=== PATIENT | male | born 1985 | race Caucasian/White ===

== ENCOUNTER 2020-04-12 13:21 | Emergency (ER) | payer OTHER ==
[~2020-04-12] VITALS: Ht 165.1 cm; Wt 102.3 kg
[2020-04-12 13:28] VITALS: BP 126/80
--- NOTE | 2020-04-12 13:28 | NUR ---
Pt taken to chair A.
--- NOTE | 2020-04-12 13:39 | NUR ---
35/M presents to ED with complaints of left ankle pain s/p a mechanical trip and fall yesterday. Patient states he stepped into a hole and twisted his ankle. Pt ambulating with steady gait. Pt has limited ROM d/t pain. CMS intact.
[2020-04-12] MEDS ORDERED: IBUPROFEN 600 MG TAB PO ONE (13:40)
[2020-04-12 14:41] VITALS: BP 126/80
== END 2020-04-12 14:40 | disposition home or self-care (01) ==
LOC: MED 13:21
DX: S93.402A Sprain of unspecified ligament of left ankle, initial encounter (principal); W22.8XXA Striking against or struck by other objects, initial encounter; Y93.89 Activity, other specified; Y92.89 Other specified places as the place of occurrence of the external cause; Y99.8 Other external cause status
CPT/HCPCS: 73610; 99283

== ENCOUNTER 2020-09-27 15:03 | Emergency (ER) | payer OTHER ==
[~2020-09-27] VITALS: Ht 165.1 cm; Wt 99.8 kg
[2020-09-27 15:34] VITALS: BP 136/86
--- NOTE | 2020-09-27 15:36 | NUR ---
Patient ambulated to lobby.
--- NOTE | 2020-09-27 15:40 | NUR ---
NO NEED NURSING CARE.
[2020-09-27 15:48] VITALS: BP 136/86
--- NOTE | 2020-09-27 15:48 | NUR ---
Patient discharged with v/s stable. Written and verbal after care instructions given and explained. Patient alert, oriented and verbalized understanding of instructions. Ambulatory with steady gait. All questions addressed prior to discharge. ID band removed. Patient advised to follow up with PMD. Rx of AMOXICILLIN, IBUPROFEN & NORCO given. Patient educated on indication of medication including possible reaction and side effects. Opportunity to ask questions provided and answered.
== END 2020-09-27 15:48 | disposition home or self-care (01) ==
LOC: MED 15:03
DX: K03.89 Other specified diseases of hard tissues of teeth (principal); K08.89 Other specified disorders of teeth and supporting structures; J45.909 Unspecified asthma, uncomplicated
CPT/HCPCS: 99283

== ENCOUNTER 2020-11-23 23:40 | Emergency (ER) | payer OTHER ==
[~2020-11-23] VITALS: Ht 165.1 cm; Wt 95.3 kg
[2020-11-23 23:50] VITALS: BP 132/79
[2020-11-23] MEDS ORDERED: KETOROLAC 60 MG/2 ML VIAL IM ONE (23:55)
[2020-11-24] MEDS ORDERED: IBUP-2213 PO (00:40)
[2020-11-24] MEDS ORDERED: ACET-8386 PO (00:40)
[2020-11-24 00:58] VITALS: BP 132/79
== END 2020-11-24 00:58 | disposition home or self-care (01) ==
LOC: MED 23:40
DX: S60.032A Contusion of left middle finger without damage to nail, initial encounter (principal); J45.909 Unspecified asthma, uncomplicated; W22.8XXA Striking against or struck by other objects, initial encounter; Y93.89 Activity, other specified; Y92.89 Other specified places as the place of occurrence of the external cause; Y99.8 Other external cause status
CPT/HCPCS: 73140; 96372; 99283; J1885

== ENCOUNTER 2021-02-08 13:51 | Emergency (ER) | payer OTHER ==
[~2021-02-08] VITALS: Ht 165.1 cm; Wt 97.5 kg
[~2021-02-08 13:51] MED LIST: ACET-8386 PO; IBUP-2213 PO
[2021-02-08 13:56] VITALS: BP 134/85
--- NOTE | 2021-02-08 14:04 | NUR ---
Patient ambulated to bed 2. RN evaluating the patient at bedside.
--- NOTE | 2021-02-08 14:05 | NUR ---
36/M presents to ED with c/o finger pain. Patient states he accientally closed a door on his third digit on his left hand one month ago. Fingernail appears black and to be lifting, patient denies pain, denies taking anything at home. Patient is able to move all fingers appropriately, states finger "feels numb but doesn't hurt."
[2021-02-08] MEDS ORDERED: IBUP-2213 PO (14:21)
[2021-02-08 14:43] VITALS: BP 134/85
== END 2021-02-08 14:40 | disposition home or self-care (01) ==
LOC: MED 13:51
DX: S61.303A Unspecified open wound of left middle finger with damage to nail, initial encounter (principal); R03.0 Elevated blood-pressure reading, without diagnosis of hypertension; J45.909 Unspecified asthma, uncomplicated; Z79.899 Other long term (current) drug therapy; X58.XXXA Exposure to other specified factors, initial encounter; Y93.89 Activity, other specified; Y92.89 Other specified places as the place of occurrence of the external cause; Y99.8 Other external cause status
CPT/HCPCS: 99282

== ENCOUNTER 2023-09-11 12:55 | Emergency (ER) | payer OTHER ==
[~2023-09-11] VITALS: Ht 165.1 cm; Wt 105.2 kg
[~2023-09-11 12:55] MED LIST changes: -ACET-8386 PO; +ACET-8905 PO
[2023-09-11 13:08] VITALS: BP 132/88; PULSE 94; RESP 20; TEMP 97.7; O2SAT 95
[2023-09-11 14:08] LABS: FLU A ANTIGEN negative (NEGATIVE); FLU B ANTIGEN NEGATIVE (NEGATIVE)
[2023-09-11] MEDS ORDERED: PSEU120T22 PO (14:11)
[2023-09-11] MEDS ORDERED: GUAI10LI4 PO (14:11)
[2023-09-11] MEDS ORDERED: AMOX875T3 PO (14:11)
== END 2023-09-11 14:14 | disposition home or self-care (01) ==
LOC: MED 12:55
DX: H66.93 Otitis media, unspecified, bilateral (principal); Z20.822 Contact with and (suspected) exposure to COVID-19; J06.9 Acute upper respiratory infection, unspecified; J45.909 Unspecified asthma, uncomplicated; Z79.899 Other long term (current) drug therapy
CPT/HCPCS: 99283

== ENCOUNTER 2023-10-07 20:58 | Emergency (ER) | payer OTHER ==
[~2023-10-07] VITALS: Ht 165.1 cm; Wt 106.1 kg
[~2023-10-07 20:58] MED LIST changes: +AMOX875T3 PO; +GUAI10LI4 PO; +PSEU120T22 PO
[2023-10-07 21:00] VITALS: BP 140/85; PULSE 78; RESP 16; TEMP 98; O2SAT 97
[2023-10-07] MEDS ORDERED: ACET-10509 PO (22:46)
[2023-10-07] MEDS ORDERED: CIPR7.5D2 LEFT EAR (22:46)
[2023-10-07] MEDS ORDERED: IBUP-2218 PO (22:46)
[2023-10-07] MEDS ORDERED: KETOROLAC 30 MG/ML VIAL IM ONE (22:50)
[2023-10-07 23:10] VITALS: BP 140/85; PULSE 78; RESP 16; TEMP 98; O2SAT 97
== END 2023-10-07 23:10 | disposition home or self-care (01) ==
LOC: MED 20:58
DX: H60.92 Unspecified otitis externa, left ear (principal); Z79.899 Other long term (current) drug therapy
CPT/HCPCS: 96372; 99283; J1885